=== PATIENT | female | born 1980 | race Caucasian/White ===

== ENCOUNTER 2019-07-22 09:38 | Emergency (ER) | payer MEDICAID, OTHER ==
--- NOTE | 2019-07-22 10:15 | EDM.PDOC ---
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 She states she has been bleeding since June 26. She initially was passing large clots, this has since resolved but she is still changing a pad every hour. Patient does have history of endometriosis. She also has cardiac history with stents and pacemaker over 1 year ago, stopped plavix 4 months ago. Occasionally takes 81mg aspirin when she remembers. History of tubal ligation. Review of systems: As per history of present illness and below otherwise all systems reviewed and negative. Past medical history: As per history of present illness and as reviewed below otherwise noncontributory. Surgical history: As per history of present illness and as reviewed below otherwise noncontributory. Social history: No reported history of drug or alcohol abuse. Family history: As per history of present illness and as reviewed below otherwise noncontributory. Physical exam: General: Patient sitting comfortably in no acute distress and nontoxic appearing HEENT: Atraumatic, normocephalic, pupils reactive, negative for conjunctival pallor or scleral icterus, mucous membranes moist, throat clear, neck supple, nontender, trachea midline. No meningeal signs. Lungs: Clear to auscultation, breath sounds equal bilaterally, chest nontender. Heart: S1S2, regular, negative for clicks, rubs, or overt murmur. Abdomen: Soft, nondistended, nontender. Negative for masses or hepatosplenomegaly. Negative for costovertebral tenderness. No rigidity, rebound , guarding. Pelvis: Stable nontender. Genitourinary: moderate amount of blood in vaginal vault. Rectal: Deferred. Extremities: Atraumatic, negative for cords or calf pain. Neurovascular unremarkable. Neuro: Awake, alert, oriented. Cranial nerves II through XII unremarkable. Cerebellum unremarkable. Motor and sensory unremarkable throughout. Exam nonfocal. Notes: Discussed with Dr. Hernandez, she advised starting patient on Flamer After Lasting 10mg daily x 10 days and follow up in the clinic. Diagnostics: CBC, CMP, PT/INR, pelvic US Therapeutics: none Prescriptions: Provera Impression: Abnormal uterine bleeding Definitive disposition and diagnosis as appropriate pending reevaluation and review of above. Bilateral Lower Abdominal Pain Score (Numeric/FACES): 10 - Related Data Allergies Allergy/AdvReac Type Severity Reaction Status Date / Time vancomycin Allergy Hives Verified 07/22/19 09:42 Home Meds: Home Meds Albuterol Sulfate [Albuterol Sulfate Hfa] 8.5 gm INH ASDIRECTED PRN 07/22/19 [ History] Amiodarone [Cordarone] 200 mg PO DAILY 07/22/19 [History] Baclofen 20 mg PO TID 07/22/19 [History] Bisoprolol/Hydrochlorothiazide [Bisoprolol/HCTZ 5-6.25 MG] 1 tab PO DAILY [History] ClonazePAM [KlonoPIN] 1 mg PO ASDIRECTED 07/22/19 [History] Cyclobenzaprine [Flexeril] 10 mg PO ASDIRECTED PRN 07/22/19 [History] Divalproex Sodium 250 mg PO DAILY 07/22/19 [History] Escitalopram [Lexapro] 20 mg PO DAILY 07/22/19 [History] Ferrous Sulfate 325 mg PO TID 07/22/19 [History] Folic Acid 1 mg PO DAILY 07/22/19 [History] Furosemide 20 mg PO DAILY 07/22/19 [History] Multivitamin [Multiple Vitamins] 1 each PO DAILY 07/22/19 [History] Non-Formulary Medication [NF Drug] 1 each PO DAILY 07/22/19 [History] Ondansetron [Zofran ODT] 8 mg PO ASDIRECTED PRN 07/22/19 [History] Pantoprazole [ProTONIX] 20 mg PO BID 07/22/19 [History] Potassium Chloride [K-Tab ER] 10 mg PO DAILY 07/22/19 [History] SUMAtriptan [Imitrex] 100 mg PO ASDIRECTED 07/22/19 [History] Sacubitril/Valsartan [Entresto 24 mg-26 mg Tablet] 1 each PO BID 07/22/19 [ History] Spironolactone [Aldactone] 25 mg PO DAILY 07/22/19 [History] Sucralfate 1 gm PO ASDIRECTED 07/22/19 [History] medroxyPROGESTERone [Provera] 10 mg PO DAILY 10 Days #10 tab 07/22/19 [Rx] traZODone HCl [Trazodone HCl] 50 mg PO BEDTIME 07/22/19 [History] Past Medical History Cardiovascular History: Reports: Pacemaker, Stents Other Cardiovascular History: chronic systolic heart failure. primary cardiomyopathy. biventricular ICD. proximal afib. CAD. SVC syndrome. 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 Neurological History: Reports: Migraines Endocrine/Metabolic History: Reports: Hypothyroidism - Infectious Disease History Infectious Disease History: Reports: Chicken Pox - Past Surgical History HEENT Surgical History: Reports: Oral Surgery Social & Family History - Family History Family Medical History: Noncontributory - Tobacco Use Smoking Status *Q: Current Every Day Smoker Years of Tobacco use: 18 Packs/Tins Daily: 0.5 - Caffeine Use Caffeine Use: Reports: Coffee, Tea - Recreational Drug Use Recreational Drug Use: No ED ROS GENERAL - Review of Systems Review Of Systems: Comprehensive ROS is negative, except as noted in HPI. ED EXAM, GI/ABD - Physical Exam Exam: See Below (see dictation) Course - Vital Signs Last Recorded V/S: Last Vital Signs Temp 98.0 F 07/22/19 09:44 Pulse 102 H 07/22/19 09:44 Resp 18 07/22/19 09:44 BP 116/72 07/22/19 09:44 Pulse Ox 98 07/22/19 09:44 - Orders/Labs/Meds Labs: Laboratory Tests 07/22/19 07/22/19 07/22/19 Range/Units 10:29 10:29 10:29 WBC 4.47 (4.0-11.0) K/uL RBC 4.04 L (4.30-5.90) M/uL Hgb 12.4 (12.0-16.0) g/dL Hct 36.6 (36.0-46.0) % MCV 90.6 (80.0-98.0) fL MCH 30.7 (27.0-32.0) pg MCHC 33.9 (31.0-37.0) g/dL RDW Std Deviation 45.9 (28.0-62.0) fl RDW Coeff of Dimitri 14 (11.0-15.0) % Plt Count 152 (150-400) K/uL MPV 11.20 (7.40-12.00) fL Neut % (Auto) 65.5 (48.0-80.0) % Lymph % (Auto) 27.1 (16.0-40.0) % Guthrie % (Auto) 6.3 (0.0-15.0) % Eos % (Auto) 0.9 (0.0-7.0) % Baso % (Auto) 0.2 (0.0-1.5) % Neut # (Auto) 2.9 (1.4-5.7) K/uL Lymph # (Auto) 1.2 (0.6-2.4) K/uL Guthrie # (Auto) 0.3 (0.0-0.8) K/uL Eos # (Auto) 0.0 (0.0-0.7) K/uL Baso # (Auto) 0.0 (0.0-0.1) K/uL Nucleated RBC % 0.0 /100WBC Nucleated RBCs # 0 K/uL INR 1.08 Sodium 141 (136-145) mmol/L Potassium 3.9 (3.5-5.1) mmol/L Chloride 104 (98-107) mmol/L Carbon Dioxide 24.7 (21.0-32.0) mmol/L BUN 11 (7.0-18.0) mg/dL Creatinine 0.9 (0.6-1.0) mg/dL Est Cr Clr Drug Dosing 82.42 mL/min Estimated GFR (MDRD) > 60.0 ml/min Glucose 85 (74-106) mg/dL Calcium 8.4 L (8.5-10.1) mg/dL Total Bilirubin 0.5 (0.2-1.0) mg/dL AST 7 L (15-37) IU/L ALT 20 (14-63) IU/L Alkaline Phosphatase 44 L (46-116) U/L Total Protein 6.7 (6.4-8.2) g/dL Albumin 3.9 (3.4-5.0) g/dL Globulin 2.8 (2.6-4.0) g/dL Albumin/Globulin Ratio 1.4 (0.9-1.6) Blood Type Antibody Screen 07/22/19 Range/Units 10:29 WBC (4.0-11.0) K/uL RBC (4.30-5.90) M/uL Hgb (12.0-16.0) g/dL Hct (36.0-46.0) % MCV (80.0-98.0) fL MCH (27.0-32.0) pg MCHC (31.0-37.0) g/dL RDW Std Deviation (28.0-62.0) fl RDW Coeff of Dimitri (11.0-15.0) % Plt Count (150-400) K/uL MPV (7.40-12.00) fL Neut % (Auto) (48.0-80.0) % Lymph % (Auto) (16.0-40.0) % Guthrie % (Auto) (0.0-15.0) % Eos % (Auto) (0.0-7.0) % Baso % (Auto) (0.0-1.5) % Neut # (Auto) (1.4-5.7) K/uL Lymph # (Auto) (0.6-2.4) K/uL Guthrie # (Auto) (0.0-0.8) K/uL Eos # (Auto) (0.0-0.7) K/uL Baso # (Auto) (0.0-0.1) K/uL Nucleated RBC % /100WBC Nucleated RBCs # K/uL INR Sodium (136-145) mmol/L Potassium (3.5-5.1) mmol/L Chloride (98-107) mmol/L Carbon Dioxide (21.0-32.0) mmol/L BUN (7.0-18.0) mg/dL Creatinine (0.6-1.0) mg/dL Est Cr Clr Drug Dosing mL/min Estimated GFR (MDRD) ml/min Glucose (74-106) mg/dL Calcium (8.5-10.1) mg/dL Total Bilirubin (0.2-1.0) mg/dL AST (15-37) IU/L ALT (14-63) IU/L Alkaline Phosphatase (46-116) U/L Total Protein (6.4-8.2) g/dL Albumin (3.4-5.0) g/dL Globulin (2.6-4.0) g/dL Albumin/Globulin Ratio (0.9-1.6) Blood Type A2B POSITIVE Antibody Screen NEGATIVE Departure - Departure Time of Disposition: 12:02 Disposition: Home, Self-Care 01 Condition: Good Clinical Impression: Abnormal uterine bleeding - Discharge Information Prescriptions: medroxyPROGESTERone [Provera] 10 mg PO DAILY 10 Days #10 tab Referrals: PCP,Not In Area [Primary Care Provider] - Forms: ED Department Discharge Additional Instructions: The following information is given to patients seen in the emergency department who are being discharged to home. This information is to outline your options for follow-up care. We provide all patients seen in our emergency department with a follow-up referral. The need for follow-up, as well as the timing and circumstances, are variable depending upon the specifics of your emergency department visit. If you don't have a primary care physician on staff, we will provide you with a referral. We always advise you to contact your personal physician following an emergency department visit to inform them of the circumstance of the visit and for follow-up with them and/or the need for any referrals to a consulting specialist. The emergency department will also refer you to a specialist when appropriate. This referral assures that you have the opportunity for follow-up care with a specialist. All of these measure are taken in an effort to provide you with optimal care, which includes your follow-up. Under all circumstances we always encourage you to contact your private physician who remains a resource for coordinating your care. When calling for follow-up care, please make the office aware that this follow-up is from your recent emergency room visit. If for any reason you are refused follow-up, please contact the [facility] Emergency Department at and asked to speak to the emergency department charge nurse. 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
[2019-07-22 11:03] LABS: BLOOD UREA NITROGEN,BUN 11 mg/dL (7.0-18.0); CARBON DIOXIDE,CO2 24.7 mmol/L (21.0-32.0); CHLORIDE,CL 104 mmol/L (98-107); GLUCOSE RANDOM 85 mg/dL (74-106); POTASSIUM,K 3.9 mmol/L (3.5-5.1); SODIUM,NA 141 mmol/L (136-145)
--- NOTE | 2019-07-22 11:56 | US ---
INDICATION: Heavy vaginal bleeding. TECHNIQUE: Ultrasound pelvis transvaginal for better assessment or to better visualize the endometrium. Real-time sonographic images with spectral and color Doppler imaging of the ovaries were obtained. COMPARISON: None FINDINGS: Uterus: 10 x 5 x 4 cm. Normal echotexture of the myometrium. No masses. Endometrium: Transvaginal imaging was performed to better evaluate the endometrium. Endometrial thickness measures 8 mm. No sign of endometrial mass or fluid. Right ovary measures 3 x 2 x 1 cm and left ovary measures 3 x 2 x 2 cm. A dominant follicle is in the left ovary. No other ovarian or adnexal lesions. Normal arterial and venous blood flow is demonstrated in both ovaries. Cul-de-sac: No significant free fluid. IMPRESSION: Unremarkable pelvic ultrasound. No finding to explain vaginal bleeding. Dictated by Joon Arguelles MD @ Jul 22 2019 11:51AM Signed by Dr. Joon Arguelles @ Jul 22 2019 11:54AM
== END 2019-07-22 12:21 | disposition home or self-care (01) ==
LOC: MW.ED 09:38
DX: N93.9 Abnormal uterine and vaginal bleeding, unspecified (principal); F17.210 Nicotine dependence, cigarettes, uncomplicated; I25.10 Atherosclerotic heart disease of native coronary artery without angina pectoris; J45.909 Unspecified asthma, uncomplicated; K21.9 Gastro-esophageal reflux disease without esophagitis; Z88.1 Allergy status to other antibiotic agents; Z79.899 Other long term (current) drug therapy; Z95.5 Presence of coronary angioplasty implant and graft; Z95.0 Presence of cardiac pacemaker; Z98.51 Tubal ligation status; Z98.890 Other specified postprocedural states
CPT/HCPCS: 36415; 76856; 76856-26; 80053; 85025; 85610; 86850; 86900; 86901; 99283; 99284-25